=== PATIENT | male | born 1975 | race Caucasian/White ===

== ENCOUNTER 2016-11-05 09:18 | Emergency (ER) | payer OTHER, BC, SELFPAY | END 2016-11-05 12:51 | disposition short-term general hospital (02) | PROVIDERS: Emergency Provider Emergency Medicine; Family Provider Family Medicine; Visit Provider Emergency Medicine | DX: S00.83XA Contusion of other part of head, initial encounter (principal); D43.2 Neoplasm of uncertain behavior of brain, unspecified; W17.89XA Other fall from one level to another, initial encounter; Y92.69 Other specified industrial and construction area as the place of occurrence of the external cause; Y99.0 Civilian activity done for income or pay | CPT/HCPCS: 70470; 70486; 71020; 80053; 81001; 82550; 82553; 84484; 85025; 93005; 93041; 96374; 99285; Q9967 ==

== ENCOUNTER → 2018-04-06 15:35 | Outpatient (CLI) | payer BC, SELFPAY | PROVIDERS: PCP Family Medicine; Visit Provider Nurse Practitioner Family | DX: Z02.4 Encounter for examination for driving license (principal) ==

== ENCOUNTER → 2019-04-11 09:45 | Outpatient (CLI) | payer SELFPAY | PROVIDERS: Visit Provider Nurse Practitioner Family | DX: Z02.4 Encounter for examination for driving license (principal) ==

== ENCOUNTER → 2019-11-29 13:01 | Outpatient (CLI) | payer BC, SELFPAY | PROVIDERS: PCP Family Medicine; Visit Provider Family Medicine | DX: I10 Essential (primary) hypertension (principal); R06.83 Snoring; R53.83 Other fatigue; E66.9 Obesity, unspecified; G47.33 Obstructive sleep apnea (adult) (pediatric) | CPT/HCPCS: G0399 ==

== ENCOUNTER → 2020-05-28 09:58 | Outpatient (CLI) | payer BC, SELFPAY | PROVIDERS: PCP Family Medicine; Visit Provider Nurse Practitioner Family | DX: Z02.4 Encounter for examination for driving license (principal) ==

== ENCOUNTER → 2020-12-27 07:45 | Outpatient (CLI) | payer BC, SELFPAY ==
[2020-12-27 09:52] LABS: Basophils # 0.1 K/mm3 (0-0.2); Basophils % 0.8 % (0.1-2.0); Eosinophils # 0.1 K/mm3 (0.0-0.4); Eosinophils % 0.8 % (0.1-12.0); Hematocrit 45.7 % (42.0-52.0); Hemoglobin 15.6 g/dL (14.1-18.0); Lymphocytes # 2.4 K/mm3 (0.7-4.5); Lymphocytes % 31.6 % (10-50); Mean Corpuscular HGB Conc 34.2 g/dL (31.8-35.4); Mean Corpuscular Hemoglobin 31.9 pg (27.0-31.2); Mean Corpuscular Volume 93.2 fl (80-94); Mean Platelet Volume 8.3 fl (7.4-10.4); Monocytes # 0.6 K/mm3 (0.1-1.0); Monocytes % 8.4 % (1.7-9.3); Neutrophils # 4.4 K/mm3 (1.8-7.8); Neutrophils % 58.4 % (37.0-80.0); Platelet Count 284 K/mm3 (142-424); White Blood Count 7.6 K/mm3 (4.8-10.8)
[2020-12-27 13:15] LABS: Alanine Aminotransferase 22 U/L (12-78); Albumin Level 4.9 g/dl (3.5-5.0); Albumin/Globulin Ratio 1.8 (1.1-1.8); Alkaline Phosphatase 87 U/L (38-126); Anion Gap 16.7 mEq/L (5-15); Aspartate Amino Transferase 26 U/L (17-59); Bilirubin,Total 0.9 mg/dl (0.2-1.3); Blood Urea Nitrogen 15 mg/dl (9-20); Carbon Dioxide 28 mmol/L (22.0-30.0); Chloride 102 mmol/L (98-107); Chol/HDL Ratio 2.8 (1-3.5); Cholesterol 141 mg/dl (140-200); Estimated Glomerular Filt Rate 81 ml/min (>60); GFR (African American) 98 ML/MIN (>60); Globulin 2.8 g/dL (1.3-3.2); Glucose 104 mg/dl (74-100); HDL Cholesterol 51 mg/dl (40-60); Potassium 5.7 mmoL/L (3.5-5.1); Sodium 141 mmol/L (136-145); Total Protein,Serum 7.7 g/dl (6.3-8.2); Triglycerides 72 mg/dl (30-150); Uric Acid 5.6 mg/dl (3.5-8.5); VLDL Cholesterol 14 mg/dL (0-40)
[2020-12-27 13:26] LABS: Direct LDL Cholesterol 70.02 mg/dL (100-129)
[2020-12-27 13:45] LABS: Thyroid Stimulating Hormone 2.43 uIU/mL (0.465-4.68)
[2020-12-27 13:48] LABS: Creatinine,Urine Random 10 mg/dL (Not Estab.)
[2020-12-27 13:57] LABS: Microalbumin < 6.000 mg/L (0-16.7)
== END ==
PROVIDERS: Visit Provider Family Medicine
DX: I10 Essential (primary) hypertension (principal); E78.5 Hyperlipidemia, unspecified
CPT/HCPCS: 80053; 80061; 82043; 82570; 84443; 84550; 85025

== ENCOUNTER → 2021-01-29 10:34 | Outpatient (CLI) | payer BC, SELFPAY ==
[2021-01-29 11:23] LABS: Basophils % 0.6 % (0.1-2.0); Eosinophils % 0.2 % (0.1-12.0); Hematocrit 47.7 % (42.0-52.0); Hemoglobin 16.1 g/dL (14.1-18.0); Lymphocytes # 0.9 K/mm3 (0.7-4.5); Lymphocytes % 14.4 % (10-50); Mean Corpuscular HGB Conc 33.8 g/dL (31.8-35.4); Mean Corpuscular Hemoglobin 32.5 pg (27.0-31.2); Mean Corpuscular Volume 96.3 fl (80-94); Mean Platelet Volume 8.2 fl (7.4-10.4); Monocytes # 0.4 K/mm3 (0.1-1.0); Monocytes % 7.5 % (1.7-9.3); Neutrophils # 4.6 K/mm3 (1.8-7.8); Neutrophils % 77.4 % (37.0-80.0); Platelet Count 255 K/mm3 (142-424); Red Blood Count 4.95 M/mm3 (4.60-6.20); Red Cell Distribution Width 13.1 % (11.5-17.5); White Blood Count 5.9 K/mm3 (4.8-10.8)
== END ==
PROVIDERS: PCP Physician Assistant; Visit Provider Family Medicine
DX: Z20.822 Contact with and (suspected) exposure to COVID-19 (principal)
CPT/HCPCS: 36415; 85025; U0003

== ENCOUNTER 2021-01-29 11:05 | Emergency (ER) | payer BC, SELFPAY ==
[2021-01-29 11:06] VITALS: BP 129/81; PULSE 77; RESP 18; TEMP 37.2; O2SAT 92; BMI 28.8
[2021-01-29 11:08] VITALS: BMI 28.8
--- NOTE | 2021-01-29 11:16 | PC.NURSE ---
LESLIE DALLAS at
--- NOTE | 2021-01-29 11:22 | HMH.EDGENADL ---
ED Disposition Clinical Impression: Vasovagal syncope Disposition: Home, Self-Care Condition on Discharge: Fair Instructions: DI for Syncope in Adults (Fainting), DI for Lymphadenopathy Additional Instructions: Follow-up with your primary care doctor. Monitor your symptoms at home. May need an ultrasound of the right groin if lymph node swelling does not resolve. stay hydrated. Tylenol and Motrin for pain and fevers. Return to the emergency department at once for any new or worsening symptoms Referrals: Provider,Referral, MD [Primary Care Provider] - Time of Disposition: 13:25 - Critical Care Critical Care Time: No Attestation: On 01/29/21, the high probability of a clinically significant, sudden or life threatening deterioration of the following system(s) required my full and direct attention, intervention and personal management. The time I documented below is in addition to time spent performing reported procedures but includes the following listed in this critical care notation. Medical Decision Making - Medical Records Medical records reviewed: Yes: I reviewed the patient's medical records. - Familia Inquiry Pt receiving controlled substance: No Vital Signs: 01/29/21 11:06 01/29/21 11:30 01/29/21 11:47 Temperature 99.0 F Temperature Source Oral Pulse Rate 90 71 Pulse Rate [Apical] 77 Respiratory Rate 18 24 Blood Pressure 128/76 90/57 L Blood Pressure [Right Arm] 129/81 Blood Pressure Mean 88 68 Blood Pressure Mean [Right Arm] 97 Blood Pressure Source [Right Arm] Automatic Cuff Blood Pressure Position [Right Arm] Sitting 02 Sat by Pulse Oximetry 92 L 98 97 Oxygen Delivery Method Room Air Orders (Tests/Meds): ED MEDICATIONS Discontinued Medications Generic Name Dose Route Start Last Admin Trade Name Freq PRN Reason Stop Dose Admin Sodium Chloride 1,000 mls @ 999 mls/hr 01/29/21 11:15 01/29/21 11:14 Sod Chlor 0.9% 1000ml Bag IV 01/29/21 12:15 999 mls/hr .Q1H1M ALONSO Administration ORDERS Category Date Time Status EKG Request [ECG Request by /Hilario] Stat Y 01/29/21 11:08 Ordered Medical Decision Narrative: In summary this is a 45-year-old male presenting to the emergency department with syncopal episode, generalized malaise, fevers, chills. Patient clinically stable on arrival. Vital signs within normal limits. Concern for viral syndrome, lymphadenopathy. Will obtain EKG, CBC, CMP, Covid test. Patient given IV fluid bolus. Initial laboratory results are reassuring. No leukocytosis. No renal insufficiency. No abnormality of glucose or electrolytes. After IV fluids patient says he is feeling much better. He was able to tolerate oral intake. Ambulating without difficulty. Right inguinal lymphadenopathy is atypical. Recommended patient monitor his symptoms, may need ultrasound if swelling persists. He expressed understanding. Stable for discharge General Adult HPI - General Stated complaint: syncope Time Seen by Provider: 01/29/21 11:10 Mode of Arrival: Wheelchair Source of Information: Patient Limitations: No Limitations - History of Present Illness HPI narrative: 45-year-old male presenting to the emergency department after syncopal episode. He has been sick over the last few days, body aches, fevers, chills. Has pain and swelling in his groin, worse on the right. Described as constant and throbbing. No particular pain with hip motion or ambulation. No changes in bowel or bladder habits. No cough, Hartness of breath. He had a negative Covid test 2 days ago. He was at the hospital today to get a CBC and second Covid test. During blood draw he syncopized. Lasted for a few seconds and then he woke up to voice. Says he continues to feel unwell. 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 says he has passed out with ear infections before. Denying ear pain, sore throat, headache, neck pain. No rashes
[2021-01-29 11:30] VITALS: BP 128/76; PULSE 90; RESP 24; O2SAT 98
[2021-01-29 11:47] VITALS: BP 90/57; PULSE 71; O2SAT 97
--- NOTE | 2021-01-29 12:40 | ECG_ITS ---
APPROVED REPORT Exam: Resting ECG HR:81 bpm ECG Measurements Heart Rate 81 AXES OR 140 P 49 QRSd 82 QRS 27 QT 320 T 25 QTc 371 Conclusion Normal sinus rhythm with sinus arrhythmia Normal ECG Electronically signed by : Slava Shay MD 02/01/2021 16:14:47
--- NOTE | 2021-01-29 12:40 | PC.NURSE ---
lab states approx 63 minutes left on outpt covid swab
--- NOTE | 2021-01-29 13:12 | PC.NURSE ---
meal tray ordered for pt
--- NOTE | 2021-01-29 13:26 | US_ITS ---
PROCEDURE: US TESTICULAR CLINICAL INDICATION: right groin pain COMPARISON: No exams were available for comparison FINDINGS: The right testicle is 4.6 x 2.3 x 3.3 cm. Small epididymal cyst is present at 3 mm. No testicular mass. There is good testicular blood flow. There is a small right hydrocele. The left testicle measures 4.1 x 2.3 x 2.9 cm. The left epididymis is unremarkable. No testicular mass. Blood flow is present in the left testicle There is a mildly prominent right inguinal lymph node at 2.4 by 1.3 cm. IMPRESSION: Small bilateral hydroceles and small right-sided epididymal cyst Mildly prominent right inguinal lymph node Dictated by: Horacio Solomon MD 01/29/2021 15:33 Horacio Solomon MD in [facility] 01/29/2021 15:33
--- NOTE | 2021-01-29 14:13 | PC.NURSE ---
pt return from ultrasound
[2021-01-29 14:25] VITALS: BP 118/72; PULSE 82; RESP 16; TEMP 37.2; O2SAT 96
== END 2021-01-29 14:25 | disposition home or self-care (01) ==
PROVIDERS: Emergency Provider Emergency Medicine
DX: R55 Syncope and collapse (principal); I10 Essential (primary) hypertension; E78.5 Hyperlipidemia, unspecified; Z20.822 Contact with and (suspected) exposure to COVID-19
CPT/HCPCS: 76870; 93005; 96365; 99283

== ENCOUNTER → 2021-08-25 09:16 | Outpatient (CLI) | payer SELFPAY | PROVIDERS: PCP Family Medicine; Visit Provider Nurse Practitioner Family | DX: Z02.4 Encounter for examination for driving license (principal) ==

== ENCOUNTER 2022-09-02 10:52 | Outpatient (CLI) | payer SELFPAY ==
[2022-09-02 11:41] VITALS: BMI 29.9
== END 2022-09-02 11:42 | disposition home or self-care (01) ==
LOC: UTC.OUT 10:55
PROVIDERS: PCP Family Medicine; Visit Provider Nurse Practitioner Family
DX: Z02.4 Encounter for examination for driving license (principal)

== ENCOUNTER 2023-08-12 09:20 | Outpatient (CLI) | payer SELFPAY | END 2023-08-12 10:09 | disposition home or self-care (01) | LOC: UTC.OUT 09:22 | PROVIDERS: PCP Family Medicine; Visit Provider Nurse Practitioner Family | DX: Z02.4 Encounter for examination for driving license (principal) ==